=== PATIENT | female | born 1965 | race Hispanic/Latino ===

== ENCOUNTER 2022-01-10 15:04 | Emergency (ER) | payer SELFPAY ==
[2022-01-10] MEDS ORDERED: NALOXONE 0.4 MG/1 ML INJ IV ONE ×2 (15:22→15:34)
[2022-01-10] MEDS ORDERED: ONDANSETRON 4 MG/2 ML INJ IV ONE (15:23)
[2022-01-10] MEDS ORDERED: SODIUM CHLORIDE 0.9% 1000 ML 1,000 ML IV ONE (15:26)
[2022-01-10 16:02] LABS: Benzodiazepines Screen,Urine Negative; Cannabinoid Screen,Urine Negative; Cocaine Screen,Urine Negative; Methadone Screen,Urine Negative; Opiate Screen,Urine Negative
[2022-01-10 16:07] LABS: Basophils # (Auto) 0.1 K/mm3 (0.0-0.1); Basophils % (Auto) 1.2 % (0.0-1.8); Eosinophils # (Auto) 0.3 K/mm3 (0.0-0.4); Eosinophils % (Auto) 4.7 % (0.0-4.3); Hematocrit 42.1 % (30.3-42.9); Lymphocytes % (Auto) 26.3 % (13.4-35.0); Mean Corpuscular HGB Conc 33 % (30-34); Mean Corpuscular Volume 89 fl (79-97); Monocytes # (Auto) 0.4 K/mm3 (0.0-0.8); Monocytes % (Auto) 5.1 % (0.0-7.3); Platelet Count 285 K/mm3 (140-440); Red Blood Count 4.75 M/mm3 (3.65-5.03); Red Cell Distribution Width 13.3 % (13.2-15.2)
--- NOTE | 2022-01-10 16:16 | Emergency Department Report ---
HPI - General Chief Complaint: Altered Mental Status PUI?: No Time Seen by Provider: 01/10/22 15:23 - HPI HPI: 56-year-old female with unknown past medical history brought in by EMS for unresponsiveness. EMS reports that the patient was in police custody and was found by police personnel to have packets of meth on her person. In route the patient became unresponsive and per their report, EMS states that the patient took the meth. They gave the patient 0.4 mg of Narcan prior to arrival but the patient did not improve. Unable to obtain remainder of review of systems secondary to patient's unresponsiveness and altered mental status at the time of arrival ED Past Medical Hx - Past Medical History Previous Medical History?: Yes Additional medical history: Unknown, patient is currently unresponsive, unable to obtain ED Review of Systems ROS: Stated complaint: UNRESPONSIVE Other details as noted in HPI Comment: Unobtainable due to pts medical conditions Physical Exam - Physical Exam General: Gen: female, middle-aged appearing, lying on stretcher, intermittently opening her eyes, but nonverbal to stimuli, requiring multiple sternal rubs HEENT: Normocephalic atraumatic pupils pinpoint nad round; no reactivity to light; sclerae anicteric Neck: Full range of motion, no midline spinal tenderness palpation, no JVD, no carotid bruits, no nuchal rigidity CVS: S1-S2 regular rate and rhythm with no gallops rubs or murmurs, chest wall nontender Pulmonary: Clear to auscultation bilaterally, no wheezes rales or rhonchi Abdomen: Soft nondistended nontender no guarding or rebound tenderness, no palpable deformities or step-offs, normal active bowel sounds, no hepatosplenomegaly, no pulsatile masses Back: Full range of motion, no midline spinal tenderness palpation, no palpable deformities or step-offs : Grossly unremarkable, Extremities: No cyanosis no clubbing no edema, intact distal peripheral pulses, Integumentary: Skin normal, no petechia no purpura no abscess no lacerations no evidence of trauma no evidence of infection Neuro: GCS 8; pt minimally responsive; will nodd her nead "no" when pt's name is called; intermittently moving bilateral upper and lower extremities, strength is 5 out of 5 in all extremities, unable to obtain remainder of neuro exam secondary to patient's mental status Psych: GCS 8, patient really responsive ED Course - Reevaluation(s) Reevaluation #1: 01/10/22 20:54 Patient is asleep but more easily arousable. She is moving all extremities. She is verbal but continues to remain sleepy. We will continue to monitor. ED Medical Decision Making - Lab Data Result diagrams: 01/10/22 15:55 01/10/22 15:55 - Radiology Data Radiology results: pending - Medical Decision Making 56-year-old female with unknown past medical history brought in by EMS for unresponsiveness and reports of presumptive methamphetamine overdose while in police custody. Vital stable. Patient given Narcan multiple times here with mild improvement in her mental status. Her vitals remained normal. Serum labs grossly unremarkable. Urine drug screen positive for methamphetamines. CT scan of head as well as chest x-ray have not been resulted. I spoke to the x-ray technicians concerning this and she states that the images are "stuck in queue and were having problems getting the reports." Due to change in provider shift time at 9 PM, patient has been signed out to Dr. Debbie Koch for follow-up of CT scan head and chest x-ray results, in addition to reassessment of the patient's clinical condition. If the pt's diagnostic diagnostic imaging results are grossly unremarkable and the patient has significantly improved and her mental status and is ambulatory, per my assessment she may be discharged to home. This will be determined by . Critical care attestation.: If time is entered above; I have spent that time in minutes in the direct care of this critically ill patient, excluding procedure time. ED Disposition Clinical Impression: Methamphetamine abuse, Unresponsiveness Disposition: 30 STILL A PATIENT Is pt being admited?: No Does the pt Need Aspirin: No Condition: Stable Referrals: PRIMARY CARE, [Primary Care Provider] - 3-5 Days
[2022-01-10 16:22] LABS: Amphetamine Screen,Urine Positive
[2022-01-10 16:25] LABS: Alanine Aminotransferase 17 units/L (7-56); Albumin 4.3 g/dL (3.9-5); Blood Urea Nitrogen 25 mg/dL (7-17); Calcium 8.9 mg/dL (8.4-10.2); Hemolysis Index 51
[2022-01-10 16:28] LABS: BUN/Creatinine Ratio 36
[2022-01-10 16:31] LABS: Bacteria,Urine 4+ /HPF (Negative)
[2022-01-10 16:38] LABS: Color,Urine Yellow (Yellow)
[2022-01-10] MEDS ORDERED: ONDANSETRON 4 MG/2 ML INJ ONE (20:07)
--- NOTE | 2022-01-10 22:09 | XRay Report ---
CHEST 1 VIEW INDICATION: Altered mental status, unresponsive. COMPARISON: None FINDINGS: SUPPORT DEVICES: None. HEART: Within normal limits. LUNGS/PLEURA: No acute air space or interstitial disease. ADDITIONAL FINDINGS: None. IMPRESSION: 1. No acute findings. Signer Name: Cj Candelario MD Signed: 01/10/2022 10:04 PM Workstation Name: [id number]
--- NOTE | 2022-01-11 08:00 | Cat Scan Report ---
CT HEAD WITHOUT CONTRAST INDICATION / CLINICAL INFORMATION: UNRESPOSIVE. TECHNIQUE: All CT scans at this location are performed using CT dose reduction for ALARA by means of automated e xposure control. COMPARISON: None available. FINDINGS: HEMORRHAGE: No evidence of intracranial hemorrhage or extra-axial fluid collection. EXTRA-AXIAL SPACES: Cortical sulci, sylvian fissures and basilar cisterns have an unremarkable appear ance. VENTRICULAR SYSTEM: The third and lateral ventricles are of normal size and configuration. CEREBRAL PARENCHYMA: No areas of abnormal brain parenchymal attenuation are identified. There is no i ndication of recent infarction. MIDLINE SHIFT OR HERNIATION: There is no mass effect. CEREBELLUM / BRAINSTEM: Brainstem and cerebellum have an unremarkable appearance. MIDLINE STRUCTURES:No abnormalities of the pituitary gland or pineal region are identified. INTRACRANIAL VESSELS:No abnormalities are identified on this noncontrast head CT. ORBITS: visualized portions of the orbits have an unremarkable appearance. SOFT TISSUES of HEAD: No significant abnormality. CALVARIUM: Evaluation of bone windows reveals no abnormalities. PARANASAL SINUSES / MASTOID AIR CELLS: Visualized portions of the paranasal sinuses are free from inf lammatory mucosal disease. Mastoid air cells are normally pneumatized. IMPRESSION: 1. No significant intracranial abnormality identified on head CT without contrast.. Signer Name: Cam Chaparro MD Signed: 01/10/2022 4:30 PM Workstation Name: [email or web address]
--- NOTE | 2022-01-11 10:45 | Electrocardiograph Report ---
[facility] Test Date: 2022-01-10 Test Time: 23:20:06 Pat Name: TERI DENSON Department: Room: Gender: F Preschool Director: ZAID : [id number] Requested By: DAVIDSON DUNCAN Order Number: [id number] Reading MD: Shantanu Mariano Measurements Intervals Reydon Rate: 66 P: 63 WA: 176 QRS: 23 QRSD: 101 T: 74 QT: 418 QTc: 440 Interpretive Statements Sinus rhythm No previous ECG available for comparison Electronically Signed On 01-11-2022 10:45:02 EDT by Shantanu Mariano
--- NOTE | 2022-01-11 11:03 | Emergency Department Report ---
Gayle Doc - Documentation Documentation: 56-year-old female presents to the hospital alteration in mental status second katelynn to drug intoxication. Patient says she signed out to overnight provider Dr. Koch as per Dr. Sheikh's note. I noted pt still in the ed without dispo Nurse informs me that during ED stay patient has been alert, awake, and ambulatory. At time my evaluation is sleeping but arousable and able to tell me her name. Labs unremarkable. UDS positive for amphetamines consistent with history of present illness, chest x-ray and CT head unremarkable. Vital signs stable Patient will be discharged with outpatient follow-up with substance abuse resources
[2022-01-11 11:37] VITALS: BP 140/80
== END 2022-01-11 11:37 | disposition home or self-care (01) ==
LOC: EDBD 15:04 → ED 15:04
DX: F15.10 Other stimulant abuse, uncomplicated (principal); Z79.899 Other long term (current) drug therapy
CPT/HCPCS: 36415; 70450; 71045; 80053; 80307; 81001; 82140; 84484; 85025; 93005; 96361; 96374; 96375; 99285; J2310; J2405; J7030; 80320; G0480